=== PATIENT | female | born 1995 | race African-American/Black ===

== ENCOUNTER 2017-10-19 06:23 | Emergency (ER) | payer OTHER ==
[~2017-10-19] VITALS: Ht 162.6 cm; Wt 48.0 kg
[2017-10-19] MEDS ORDERED: DIPHENHYDRAMINE 25MG CAPSULE PO ONE (08:00)
[2017-10-19] MEDS ORDERED: FAMOTIDINE 20MG TABLET PO ONE (08:00)
[2017-10-19] MEDS ORDERED: DEXAMETHASONE 4MG/ML 1ML VIAL IM ONE (08:00)
[2017-10-19 09:53] VITALS: BP 121/78
== END 2017-10-19 10:23 | disposition home or self-care (01) ==
LOC: ER 06:55
DX: T78.1XXA Other adverse food reactions, not elsewhere classified, initial encounter (principal); F17.210 Nicotine dependence, cigarettes, uncomplicated; F12.10 Cannabis abuse, uncomplicated; Z91.018 Allergy to other foods
CPT/HCPCS: 96372; 99283; J1100; Z7610; Q0163

== ENCOUNTER 2025-10-30 12:41 | Emergency (ER) | payer MEDICAID, OTHER ==
[~2025-10-30] VITALS: Ht 165.1 cm; Wt 63.0 kg
[2025-10-30 12:44] VITALS: O2SAT 99
[2025-10-30] MEDS: HALOPERIDOL LACTATE 5MG/ML VIAL IM ONE (13:30)
[2025-10-30] MEDS: DIPHENHYDRAMINE 50MG/ML VIAL IM ONE (13:30)
[2025-10-30] MEDS: LORAZEPAM 2MG/ML UD SYRINGE IM NR (13:45)
[2025-10-30 14:23] LABS: *AMPHETAMINES SCREEN URINE PRESUMPTIVE POSITIVE (NEGATIVE); *BARBITURATES SCREEN URINE NEGATIVE (NEGATIVE); *BENZODIAZEPINES SCREEN URINE NEGATIVE (NEGATIVE); *COCAINE SCREEN URINE NEGATIVE (NEGATIVE); CANNABINOID URINE SCREEN PRESUMPTIVE POSITIVE (NEGATIVE); ECSTASY MDMA SCREEN URINE CONF.TEST INDICATED (NEGATIVE); METHADONE URINE SCREEN NEGATIVE (NEGATIVE); OPIATES URINE SCREEN NEGATIVE (NEGATIVE); PHENCYCLIDINE URINE SCREEN NEGATIVE (NEGATIVE)
[2025-10-30 15:28] LABS: BASOPHILS % 0.5 % (0.0-2.0); EOSINOPHILS % 1.6 % (0.0-5.0); HEMATOCRIT. 40.5 % (36.0-48.0); HEMOGLOBIN. 14.1 g/dL (12.0-16.0); LYMPHOCYTES % 18.5 % (20.0-50.0); MEAN PLATELET VOLUME 7.6 fl (7.4-10.4); MONOCYTES % 14.5 % (2.0-8.0); NEUTROPHILS % 64.9 % (40.0-76.0); PLATELET 259 x1000/uL (130-400); RED BLOOD CELL COUNT 4.22 mill/uL (4.2-5.4); RED CELL DISTRIBUTION WIDTH 12.5 % (11.6-14.6)
[2025-10-30 15:53] LABS: CREATININE 0.9 mg/dL (0.6-1.0); UREA NITROGEN BLOOD 13 mg/dL (9-23)
[2025-10-30 15:54] LABS: ETHANOL BLOOD < 10 mg/dL (<10); PROTEIN TOTAL 7.5 g/dL (6.0-8.3)
[2025-10-30 15:55] LABS: ASPARTATE AMINOTRANSFERASE 35 IU/L (<34); BILIRUBIN DIRECT 0.6 mg/dL (<=3.0)
[2025-10-30 15:56] LABS: BILIRUBIN TOTAL 1.9 mg/dL (0.1-1.0)
[2025-10-30 16:20] LABS: HCG SCREEN NEGATIVE
[2025-10-31 00:36] LABS: CLARITY URINE CLEAR (CLEAR); COLOR URINE YELLOW (YELLOW); GLUCOSE URINE NEGATIVE (NEGATIVE); KETONES URINE 1+ (NEGATIVE); LEUKOCYTE ESTERASE URINE NEGATIVE (NEGATIVE); NITRITE URINE NEGATIVE (NEGATIVE); OCCULT BLOOD URINE NEGATIVE (NEGATIVE); PH URINE 5.0 (4.5-8.0); PROTEIN URINE NEGATIVE (NEGATIVE); SPECIFIC GRAVITY URINE 1.029 (1.005-1.030); UROBILINOGEN URINE 1.0 E.U./dL (0.2-1.0)
[2025-10-31 09:30] VITALS: BP 113/77; PULSE 77; RESP 20; TEMP 36.8; O2SAT 100
== END 2025-10-31 09:43 ==
LOC: ER 12:41
DX: F20.9 Schizophrenia, unspecified (principal); F15.10 Other stimulant abuse, uncomplicated; F31.9 Bipolar disorder, unspecified; F12.90 Cannabis use, unspecified, uncomplicated; Z91.018 Allergy to other foods; Z79.899 Other long term (current) drug therapy; Z20.822 Contact with and (suspected) exposure to COVID-19
CPT/HCPCS: 80076; 80305; 80048; 80307; 80329; 80320; 84703; 85025; 36415; 96372; 99285; 87426; 81003; J1200; J1630; J2060; Z7610; G0480